=== PATIENT | female | born 1990 | race Caucasian/White ===

== ENCOUNTER 2023-09-17 15:57 | Emergency (ER) | payer OTHER, SELFPAY ==
[2023-09-17 16:07] VITALS: BP 121/80
--- NOTE | 2023-09-17 17:02 | ED.GENMED ---
History of Present Illness
General
Chief Complaint: Back Pain
Source: patient
Time Seen by Provider: 09/17/23 16:48
Travel History
Have you had any contact with someone who has COVID-19?: No
Do you have any symptoms of coronavirus? Fever > 100 degrees, chills, cough, shortness of breath, sore throat, loss of taste or smell, muscle aches, or headache?: No
History of Present Illness
History of Present Illness:
32-year-old female with past medical history of cervical spinal cord compression resulting in emergent ACDF surgery in September 2022 being sent to the emergency department by primary care provider for worsening cervical and upper thoracic pain over the
last 2 days with resulting paresthesia within the cervical spine region and a feeling of compression similar to when she needed surgery in the past. She notes the last time she did have pronounced numbness in her upper extremities as well as her
right lower leg which she denies presently. She states symptoms are believed to have been started after she was holding her daughter who tried to lunge out of her arms causing the neck pain. Patient denies any fevers, headache or any other
concerns presently. Took 2 naproxen earlier without any relief.
Past History
Past History
ED Past Medical History: Other (Bicuspid aortic valve)
ED Past Surgical History: Gynecological (Laparoscopic fulguration of endometriosis, hysteroscopy by Dr. Shaw July 2018) and Orthopedic
Social History
Tobacco: Non-smoker
Alcohol: None
Drug: None
Personal:
Living: with family
Review of Systems
Review of Systems
All Other Systems: ROS reviewed and negative except as documented in HPI and ROS
Phy Exam
Physical Exam
Physical Exam:
GENERAL: Alert , in no apparent distress
EYE: conjunctiva clear
NECK: Supple, no significant adenopathy.
ENT: o/p clr, mmm.
CARDIAC: Regular rate and rhythm
LUNGS: Clear breath sounds bilaterally, no acute respiratory distress, no wheezes/rales/rhonchi
NEUROLOGICAL: Alert and oriented x 3, moves upper and lower extremities bilateral without difficulty. 2+ biceps, triceps and brachial radialis deep tendon reflexes bilateral upper extremities. Sensation grossly intact to light touch.
Back: Reproducible midline tenderness around C6/7. No overlying skin changes
SKIN: Warm and dry, skin intact.
MUSCULOSKELETAL: well perfused.
PSYCH: Normal and appropriate interaction.
Scores
Heart Failure Risk
Heart Failure Risk Score: Not Applicable
Heart Score for Chest Pain Patients
STEMI patient?: Not applicable
Withdrawal Assessment of Alcohol
Withdrawal Assessment Completed?: Not applicable
Course
Orders/Labs/Results
Orders:
Orders
09/17/23 16:54
Test Result ONCE
09/17/23 17:03
Basic Metabolic Panel Urgent
Complete Blood Count/With Diff Urgent
HCG, Serum Qualitative Screen Urgent
PTT Urgent
Prothrombin Time Urgent
09/17/23 17:10
Dexamethasone Sod Phosphate [Decadron] 10 mg IV NOW STA
Ketorolac [Toradol] 30 mg IV NOW STA
09/17/23 17:12
CT Cervical Spine W/o Iv Contr Urgent
Comment:
Reason For Exam: neck pain, hx cord compression with surgery
Abnormal Lab Results
09/17/23
17:03
RBC 3.96 L 10^6/uL
(4.20-5.40)
Hgb 11.7 L g/dL
(12.0-16.0)
Hct 35.6 L %
(37.0-47.0)
MCHC 32.9 L g/dL
(33.0-37.0)
MPV 11.6 H fL
(7.4-10.4)
Monocytes % 10.3 H %
(1.7-9.3)
09/17/23 17:03
09/17/23 17:03
Vital Signs
Initial and Last Documented VS:
Initial Vital Signs
Temp Pulse Resp BP Pulse Ox
98.6 F 85 18 121/80 100
09/17/23 16:07 09/17/23 16:07 09/17/23 16:07 09/17/23 16:07 09/17/23 16:07
Last Documented Vital Signs
Temp Pulse Resp BP Pulse Ox
98.6 F 74 20 103/69 100
09/17/23 16:07 09/17/23 18:39 09/17/23 18:39 09/17/23 18:39 09/17/23 18:39
MDM/Problems Addressed
Differential Diagnosis Includes:
Recurring cord compression/disc herniation, muscle spasm, no concern for infectious etiology
MDM/Problems Addressed:
32-year-old female presenting to the emergency department for evaluation at the request of primary care provider and neurosurgeon for evaluation of worsening neck pain with paresthesia over the last few days. Patient has history of cord compression
with myelopathy resulting in emergent decompression surgery back in September 2022. Findings today seem to be less concerning than her presenting symptoms last time and she noted significant weakness to bilateral upper extremities and right leg which
she does not have today however she does note paresthesias and states the pain feels similar to when all of her symptoms started prior to surgery. Will notify her neurosurgeon that patient is here and attempting to get a stat MRI. Will also notify
radiologist to try and help expedite this. Will treat with Toradol, Decadron and reassess.
*Pulse Oximetry
Patient hypoxic: no
*Critical Care Note
Total Time (30-74mins, 75-104mins- exclusive of procedures): Not Applicable
Patient Management
Discussion with other providers: Radiologist
Escalation/DeEscalation of care consider admission/obs:
5:06 PM: Spoke to radiologist, Dr. Godinez, who states MRI cannot be done today and that this is an outpatient procedure and not an emergent procedure.
5:15 PM: Spoke to neurosurgeon, Dr. Wills, and informed her that radiology will not do MRI today and recommended this be done as an outpatient. Decision was made to obtain a CT is better evaluate and if there is any large disc extrusion or
complication with surgical hardware we could then maybe proceed with MRI imaging. Discussed with neurosurgery that patient does not have any objective neurologic findings on exam which she admittedly did have prior to her surgery the last time.
There agreeable with the steroid and anti-inflammatory here. Will discuss following CT imaging.
6:54 PM: Informed neurosurgery of patient's CT results which include the following: IMPRESSION:
1).Minimal posterior spurring off the superior endplate of C6 is associated with minimal impingement upon the anterior aspect of the thecal sac without associated cord impingement
2). There is minimal posterior bulging of the disc at C6-7 associated with minimal judgment on the anterior aspect of the thecal sac
3). There is discectomy with interbody fusion and anterior metallic stabilization at C5-6
Patient is stable for discharge home. Prescription for baclofen and a Medrol Dosepak were sent to pharmacy and patient can follow-up as an outpatient. Aware of return precautions to the emergency department.
ED Attending Note
-
Portions of this chart may have been created with voice recognition software.� Occasional wrong word or��sound alike� substitutions may have occurred due to the inherent limitations of voice recognition software.
Discharge Plan
Departure
Patient Disposition: Home (Routine Discharge)
Date of Disposition: 09/17/23
Time of Disposition: 18:54
Patient with high blood pressure during this ER visit?: No
Discharge Problem:
Cervicalgia
Instructions: Neck pain
Prescriptions:
New
methylprednisolone [Medrol (Arsenio)] 4 mg tablets,dose pack
4 mg PO DIRECTED Qty: 21 0RF
baclofen 5 mg tablet
5 mg PO BID PRN (Reason: muscle spasm) Qty: 10 0RF
No Action
PNV cmb#95-ferrous fumarate-FA [] 1 EACH tablet
1 ea PO DAILY
acetaminophen 325 MG tablet
650 mg PO Q4HPRN PRN (Reason: mild pain) 0RF
docusate sodium 100 MG capsule
100 mg PO BID 0RF
ibuprofen 600 MG tablet
600 mg PO Q4HPRN PRN (Reason: moderate pain/cramps) 0RF
prednisone 20 mg tablet
20 mg PO DAILY Qty: 7 0RF
Referrals:
Jazmine Wills MD [Active] -
Maximo Draper MD [Family Provider] -
Interventions
Interventions:
*Risk Screen - Suicide Last Done: 09/17/23 16:07
*General Assessment Last Done: 09/17/23 16:07
*Neglect/Abuse Screening Last Done: 09/17/23 16:07
*ED COVID-19 Vaccine History Last Done: 09/17/23 16:14
*Nursing Disposition Last Done: 09/17/23 19:15
ED-Musculoskeletal Assessment Last Done: 09/17/23 17:50
Discharge Date and Time
Discharge Date/Time: 09/17/23 19:16
Print Language: AZERI
[2023-09-17 17:25] LABS: % Basophils 0.7 % (0-2); % Eosinophils 3.8 % (0-6); % Immature Granulocytes 0.2 % (0-0.5); % Lymphocytes 33.3 % (20.5-51.1); % Monocytes 10.3 % (1.7-9.3); % Neutrophils 51.7 % (42.2-75.2); Absolute Eosinophils 0.2 10^3/uL (0-0.7); Absolute Monocytes 0.6 10^3/uL (0.1-0.6); Absolute Neutrophils 3.1 10^3/uL (1.4-6.5); Hematocrit 35.6 % (37.0-47.0); Hemoglobin 11.7 g/dL (12.0-16.0); Mean Corp Hgb Conc. 32.9 g/dL (33.0-37.0); Mean Corpuscular Hgb 29.5 pg (27.0-31.0); Mean Corpuscular Volume 89.9 fL (81.0-99.0); Mean Platelet Volume 11.6 fL (7.4-10.4); Nucleated Red Blood Cells % 0 %; Platelet Count 181 10^3/uL (130-400); Red Blood Cell Count 3.96 10^6/uL (4.20-5.40); Red Cell Dist. Width 13.4 % (11.5-14.5)
[2023-09-17 17:34] LABS: INR 1.07; PT 13.7 Sec (11.4-14.6)
[2023-09-17 17:35] LABS: APTT 34.6 Sec (23.4-35.0)
[2023-09-17] MEDS: TORADOL 30 MG IV (17:36)
[2023-09-17] MEDS: DECADRON 10 MG IV (17:37)
[2023-09-17 17:39] LABS: HCG, Serum Qualitative Screen Negative
[2023-09-17 17:43] LABS: Blood Urea Nitrogen 12 mg/dl (7-17); Calcium 9.8 mg/dl (8.4-10.2); Carbon Dioxide 25 mmol/L (22-30); Chloride 104 mmol/L (98-107); Glucose 92 mg/dl (70-99); Potassium 4.1 mmol/L (3.5-5.1); Sodium 137 mmol/L (135-145); eGFR > 60.00
[2023-09-17 18:39] VITALS: BP 103/69
== END 2023-09-17 19:16 | disposition home or self-care (01) ==
LOC: EMR 15:57
PROVIDERS: Physician Assistant Medical; EMERGENCY PHYSICIAN Emergency Medicine; FAMILY PHYSICIAN Family Medicine
DX: M54.2 Cervicalgia (principal); Q23.1 Congenital insufficiency of aortic valve
CPT/HCPCS: 99284; 96374; 96375; 72125; 80048; 84703; 85025; 85610; 85730

== ENCOUNTER → 2023-09-28 07:26 | Outpatient (REF) | payer OTHER, SELFPAY | LOC: MRI 07:26 | PROVIDERS: ATTENDING PHYSICIAN Physician Assistant | DX: G95.20 Unspecified cord compression (principal); R20.2 Paresthesia of skin; Z98.1 Arthrodesis status | CPT/HCPCS: 72156 ==

== ENCOUNTER 2024-12-31 08:43 | Emergency (ER) | payer OTHER, SELFPAY ==
[2024-12-31 08:57] VITALS: BP 127/81
[2024-12-31 10:14] LABS: HCG, Urine Qualitative Screen Negative
--- NOTE | 2024-12-31 10:17 | ED.GENMED ---
History of Present Illness
General
Chief Complaint: Chest Pain
Source: patient
Exam Limitations: none
Time Seen by Provider: 12/31/24 09:18
Nursing documentation reviewed up to this point in time: agreed with
History of Present Illness
History of Present Illness:
Patient with history of enlarged aorta and bicuspid valve, since she was a child, currently being evaluated for possible autoimmune disease as an outpatient by her primary care physician, presents to ED after waking up this morning with sharp chest
pain. Chest pain described as sharp, with radiation to back and arm, with dizzy sensation. Denies shortness of breath, diaphoresis, or nausea sensation. Denies previous history of similar symptoms. Denies recent illness. Denies recent travel or
surgery. Denies back pain. Denies leg pain or swelling. Of note, patient reports working upstairs in her house yesterday in hide condition, working on wires. She reports feeling strenuous and sweaty while working. In addition, patient is under
heavy stress recently, which has caused decreased appetite and weight loss. Denies family history of early heart disease. Denies family history of blood clots. Chest pain, originally described as sharp, has evolved to feel more of burning
sensation and achy feeling, at time of evaluation in ED
Past History
Past History
ED Past Medical History: Other (Bicuspid aortic valve)
ED Past Surgical History: Gynecological (Laparoscopic fulguration of endometriosis, hysteroscopy by Dr. Shaw July 2018) and Orthopedic
Social History
Tobacco: Non-smoker
Alcohol: None
Drug: None
Personal:
Living: with family
Review of Systems
Review of Systems
Allergies reviewed?: Yes
All Other Systems: ROS reviewed and negative except as documented in HPI and ROS
Constitutional: Reports no symptoms
Respiratory: Reports no symptoms; Denies trouble breathing
Cardiac: Reports chest pain; Denies palpitations or syncope
ABD/GI: Reports no symptoms; Denies abdominal pain, nausea or vomiting
Musculoskeletal: Reports no symptoms
Skin: Reports no symptoms
Neurological: Reports no symptoms
Phy Exam
Physical Exam
Physical Exam:
Physical Exam
General: mild distress, not acutely ill. afebrile
Head: nc/at. eomi
Neck: supple. no meningeal signs
Heart: s1/s2 regular rate and rhythm
Lungs: no acute respiratory distress. clear bilaterally. chest wall nontender to palpation.
Abdomen: normal bowel sounds. not tender.
Neuro: alert and oriented x 3. no focal neurological deficits
Skin: no rash
Psychiatric: well kept. interactive and cooperative
Extremities: no edema. no calf tenderness.
Scores
Heart Score for Chest Pain Patients
STEMI patient?: No
History: Slightly or Non-Suspicious
ECG: Normal
Age: </= 45 years
Risk Factors: No Risk Factors
Troponin: </= Normal Limit
Heart Score for Chest Pain Patients: 0
Heart Score Risk: 2.5% MACE over next 6 weeks
Course
Orders/Labs/Results
Orders:
Orders
12/31/24 08:57
EKG [Electrocardiogram (*1)] Urgent
Reason for Study: Chest Pain
EKG- Treatment ONCE
12/31/24 09:21
Test Result ONCE
12/31/24 09:22
Urine,Hcg qualitative screen [HCG, Urine Qualitative Screen] Urgent
Date Specimen was Collected: 12/31/24
Time Specimen was Collected: 09:21
12/31/24 10:00
0.9% Sodium Chloride 500 ml [Nss] 500 ml IV BOLUS
Ketorolac [Toradol] 15 mg IV NOW STA
Pantoprazole [Protonix IV] 40 mg IV NOW STA
Test Result ONCE
CR Chest - 2 Views Urgent
Comment:
Reason For Exam: chest pain
12/31/24 10:10
CPK [Creatine Phosphokinase] Urgent
Complete Blood Count/No Diff Urgent
Comprehensive Metabolic Panel Urgent
D-Dimer Urgent
Lipase Urgent
Magnesium Urgent
TSH Urgent
Troponin I Urgent
12/31/24 10:27
Sterile Water [Sterile Water For Injection] 20 ml .ROUTE .STK-MED
12/31/24 11:54
EKG- Treatment ONCE
12/31/24 13:00
Electrocardiogram (*1) Urgent
Reason for Study: Chest Pain
12/31/24 13:27
Troponin I Urgent
Abnormal Lab Results
12/31/24
10:10
WBC 4.4 L 10^3/uL
(4.8-10.8)
RBC 3.92 L 10^6/uL
(4.20-5.40)
Hgb 11.6 L g/dL
(12.0-16.0)
Hct 34.5 L %
(37.0-47.0)
MPV 11.6 H fL
(7.4-10.4)
Chloride 108 H mmol/L
(98-107)
12/31/24 10:10
12/31/24 10:10
Vital Signs
Initial and Last Documented VS:
Initial Vital Signs
Temp Pulse Resp BP Pulse Ox
98 F 83 20 127/81 99
12/31/24 08:57 12/31/24 08:57 12/31/24 08:57 12/31/24 08:57 12/31/24 08:57
Last Documented Vital Signs
Temp Pulse Resp BP Pulse Ox
98 F 68 15 103/70 100
12/31/24 08:57 12/31/24 14:30 12/31/24 14:30 12/31/24 14:00 12/31/24 14:30
MDM/Problems Addressed
MDM/Problems Addressed:
Patient with an unremarkable, ED, including blood work, EKG, and chest x-ray. In addition, after administration of Toradol and Protonix, patient reports moderate improvement in symptoms. History and exam less likely ACS, but more likely
musculoskeletal versus esophagitis or other GI cause, especially with current increased stress level. However, as patient has never experienced similar chest pain in the past, will advise patient to rest, Tylenol/Motrin for relief, as well as close
follow-up with primary care physician. Turn precautions provided. Patient otherwise is afebrile, hemodynamically stable, and appears comfortable, at time of discharge, to the care of her spouse.
*Pulse Oximetry
SaO2: 100
Oxygen Mode of Delivery: Room air
Patient hypoxic: no
*Critical Care Note
Total Time (30-74mins, 75-104mins- exclusive of procedures): Not Applicable
ED Attending Note
-
Portions of this chart may have been created with voice recognition software.� Occasional wrong word or��sound alike� substitutions may have occurred due to the inherent limitations of voice recognition software.
Discharge Plan
Departure
Patient Disposition: Home (Routine Discharge)
Date of Disposition: 12/31/24
Time of Disposition: 14:31
Patient with high blood pressure during this ER visit?: Yes
Discharge Problem:
Chest pain
Instructions: Chest Pain PCP Follow Up
Prescriptions:
No Action
acetaminophen 325 MG tablet
650 mg PO Q4HPRN PRN (Reason: mild pain) 0RF
ibuprofen 600 MG tablet
600 mg PO Q4HPRN PRN (Reason: moderate pain/cramps) 0RF
dextroamphetamine-amphetamine [Adderall XR] 20 mg Capsule,Extended Release 24hr
20 mg PO DAILY
dextroamphetamine-amphetamine [Adderall] 5 mg Tablet
5 mg PO DAILY
Referrals:
Fern Senior MD [Family Provider, Family Practice]
Activity Restrictions/Additional Instructions:
As discussed, please follow-up with your primary care physician for reevaluation, or return to ED with worsening symptoms.
Interventions
Interventions:
*Risk Screen - Suicide Last Done: 12/31/24 09:00
*General Assessment Last Done: 12/31/24 09:00
*Neglect/Abuse Screening Last Done: 12/31/24 09:00
*ED- Fall Risk Assessment Last Done: 12/31/24 09:24
*ED COVID-19 Vaccine History Last Done: 12/31/24 09:24
*Nursing Disposition Last Done: 12/31/24 14:45
ED- Cardiac Assessment Last Done: 12/31/24 09:34
Discharge Date and Time
Discharge Date/Time: 12/31/24 14:46
Print Language: PALAUAN
[2024-12-31 10:21] LABS: Hematocrit 34.5 % (37.0-47.0); Hemoglobin 11.6 g/dL (12.0-16.0); Mean Corp Hgb Conc. 33.6 g/dL (33.0-37.0); Mean Corpuscular Volume 88.0 fL (81.0-99.0); Platelet Count 182 10^3/uL (130-400); Red Cell Dist. Width 13.2 % (11.5-14.5)
[2024-12-31 10:24] VITALS: BP 108/75
[2024-12-31 10:44] LABS: ALT (SGPT) 30 U/L (0-35); AST (SGOT) 35 U/L (14-36); Albumin 4.4 g/dl (3.5-5.0); Alkaline Phosphatase 45 U/L (38-126); Blood Urea Nitrogen 8 mg/dl (7-17); Calcium 9.7 mg/dl (8.4-10.2); Carbon Dioxide 26 mmol/L (22-30); Chloride 108 mmol/L (98-107); Glucose 87 mg/dl (70-99); Lipase 88 U/L (23-300); Magnesium 1.9 mg/dl (1.6-2.3); Potassium 4.2 mmol/L (3.5-5.1); Sodium 138 mmol/L (135-145); Total Protein 7.3 g/dl (6.3-8.2); eGFR > 60.00
[2024-12-31] MEDS: TORADOL 15 MG IV (10:44)
[2024-12-31] MEDS: PROTONIX IV 40 MG IV (10:44)
[2024-12-31 10:52] LABS: Troponin I < 0.012 ng/ml
[2024-12-31 11:00] VITALS: BP 107/63
[2024-12-31 11:08] LABS: TSH 1.75 uIU/ml (0.47-4.68)
[2024-12-31] MEDS: NSS 500 IV (11:19)
[2024-12-31 11:22] LABS: D-Dimer < 0.27 ug/mlFEU (0.00-0.50)
[2024-12-31 12:00] VITALS: BP 107/76
[2024-12-31 13:00] VITALS: BP 95/62
[2024-12-31 14:00] VITALS: BP 103/70
[2024-12-31 14:02] LABS: Troponin I < 0.012 ng/ml
== END 2024-12-31 14:46 | disposition home or self-care (01) ==
LOC: EMR 08:43
PROVIDERS: EMERGENCY PHYSICIAN Emergency Medicine; FAMILY PHYSICIAN Family Medicine
DX: R07.89 Other chest pain (principal); R42 Dizziness and giddiness; M54.9 Dorsalgia, unspecified; M79.602 Pain in left arm; R03.0 Elevated blood-pressure reading, without diagnosis of hypertension; Z73.3 Stress, not elsewhere classified; Q23.81 Bicuspid aortic valve; G43.909 Migraine, unspecified, not intractable, without status migrainosus; Z91.018 Allergy to other foods
CPT/HCPCS: 99284; 96374; 96375; 71046; 80053; 81025; 82550; 83690; 83735; 84443; 84484; 85027; 85379; 93005